=== PATIENT | female | born 1930 | race Caucasian/White ===

== ENCOUNTER 2017-06-25 15:02 | Emergency (ER) | payer MEDICARE ==
[2017-06-25 15:08] VITALS: BP 118/80; PULSE 98; RESP 18; TEMP 98.5; O2SAT 97
--- NOTE | 2017-06-25 15:21 | PD ---
HPI Chief Complaint: Fall Time Seen by Provider: 15:09 Travel History International Travel<30 days: No Contact w/Intl Traveler<30days: No Traveled to known affect area: No History of Present Illness HPI This 87-year-old female is brought for evaluation of injuries from a fall. [facility] She was awake. She had apparently fallen. The fall Was not witnessed. She is not on blood thinners. She does have a history of dementia and is not able to give history. We do not have any old charts on this lady [facility] Past Medical History Medical History: Unable to Obtain ?: Not Social History Tobacco Use: No Allergies-Medications (Allergen,Severity, Reaction): Coded Allergies: No Known Allergies (Unverified , 06/25/17) Reported Meds & Prescriptions Reported Meds & Active Scripts Active Macrobid (Nitrofurantoin Monoh/Nitrofur Macro) 100 Mg Cap 100 Mg PO BID 10 Days Reported Rivastigmine 1.5 Mg Cap 9.5 Mg PO BIDPC Proair Hfa (Albuterol Sulfate) 90 Mcg Hfa.aer.ad Potassium Chloride ER (Potassium Chloride) 20 Meq Tab 20 Meq PO BID Mapap (Acetaminophen) 500 Mg Tab 500 Mg PO BID PRN Januvia (Sitagliptin Phosphate) 100 Mg Tab 100 Mg PO DAILY Hydrochlorothiazide 12.5 Mg Cap 12.5 Mg PO DAILY Glimepiride 2 Mg Tab 2 Mg PO DAILY Take with breakfast or first main meal Furosemide 20 Mg Tab 20 Mg PO DAILY Cetirizine (Cetirizine HCl) 10 Mg Chew 10 Mg CHEW DAILY Calcium Carbonate 1,500 Mg Tab 1,500 Mg PO DAILY 1,500 mg calcium carbonate (600 mg elemental calcium) Sulfatrim 800-160 mg/20 ml Holly (Sulfamethoxazole/Trimethoprim) 800 Mg-160 Mg/20 Ml Oral.susp 1 Tab PO BID Atorvastatin (Atorvastatin Calcium) 40 Mg Tab 40 Mg PO HS Aspirin 81 Mg Chew 81 Mg CHEW DAILY Review of Systems ROS Limitations: Altered Mental Status, Poor Historian Physical Exam Narrative GENERAL: Well-developed female. She is awake. She is extremely confused. She is not oriented to place or time SKIN: Focused skin assessment warm/dry. There is erythema of both legs around the ankles HEAD: Results of. Normocephalic. EYES: Pupils equal and round. No scleral icterus. No injection or drainage. ENT: No nasal bleeding or discharge. Mucous membranes pink and moist. NECK: Trachea midline. No JVD. CARDIOVASCULAR: Regular rate and rhythm. No murmur appreciated. RESPIRATORY: No accessory muscle use. Clear to auscultation. Breath sounds equal bilaterally. GASTROINTESTINAL: Abdomen soft, non-tender, nondistended. Hepatic and splenic margins not palpable. MUSCULOSKELETAL: No obvious deformities. No clubbing. No cyanosis. No edema. I am able to flex and extend the arms and legs without much discomfort. She does complain of fairly diffuse pain with palpation of the chest pelvic area of the wrist no bruising at this site NEUROLOGICAL: Awake and alert. No obvious cranial nerve deficits. Motor grossly within normal limits. Normal speech. PSYCHIATRIC: Patient is extremely confused and not oriented Data Data Last Documented VS Vital Signs Date Time Temp Pulse Resp B/P (MAP) Pulse Ox O2 Delivery O2 Flow Rate FiO2 06/25/17 21:46 06/25/17 21:43 78 16 06/25/17 15:08 98.5 97 Orders Orders Electrocardiogram (06/25/17 15:14) Complete Blood Count With Diff (06/25/17 15:14) Basic Metabolic Panel (Bmp) (06/25/17 15:14) Chest, Single Ap (06/25/17 15:14) Pelvis, Ap Only (Routine) (06/25/17 15:14) Ct Brain W/O Iv Contrast(Rout) (06/25/17 15:14) Ct Cerv Spine W/O Contrast (06/25/17 15:14) Sodium Chlorid 0.9% 500 Ml Inj (Ns 500 M (06/25/17 17:30) Sodium Polysty Sulfate Liq (Kayexalate L (06/25/17 17:30) Urinalysis - C+S If Indicated (06/25/17 17:26) ^ Straight Catheter (06/25/17 17:26) Urine Culture (06/25/17 18:30) Ceftriaxone Inj (Rocephin Inj) (06/25/17 19:00) Sodium Chlorid 0.9% 500 Ml Inj (Ns 500 M (06/25/17 19:00) Blood Culture (06/25/17 18:54) Ed Discharge Order (06/25/17 18:58) Labs Laboratory Tests Test 06/25/17 16:20 06/25/17 18:30 White Blood Count 12.9 TH/MM3 Red Blood Count 4.71 MIL/MM3 Hemoglobin 12.8 GM/DL Hematocrit 38.9 % Mean Corpuscular Volume 82.6 FL Mean Corpuscular Hemoglobin 27.2 PG Mean Corpuscular Hemoglobin Concent 33.0 % Red Cell Distribution Width 12.6 % Platelet Count 275 TH/MM3 Mean Platelet Volume 9.0 FL Neutrophils (%) (Auto) 83.9 % Lymphocytes (%) (Auto) 7.4 % Monocytes (%) (Auto) 5.9 % Eosinophils (%) (Auto) 2.1 % Basophils (%) (Auto) 0.7 % Neutrophils # (Auto) 10.8 TH/MM3 Lymphocytes # (Auto) 1.0 TH/MM3 Monocytes # (Auto) 0.8 TH/MM3 Eosinophils # (Auto) 0.3 TH/MM3 Basophils # (Auto) 0.1 TH/MM3 CBC Comment AUTO DIFF Differential Comment AUTO DIFF CONFIRMED Blood Urea Nitrogen 25 MG/DL Creatinine 1.30 MG/DL Random Glucose 198 MG/DL Calcium Level 8.5 MG/DL Sodium Level 132 MEQ/L Potassium Level 5.4 MEQ/L Chloride Level 100 MEQ/L Carbon Dioxide Level 24.3 MEQ/L Anion Gap 8 MEQ/L Estimat Glomerular Filtration Rate 39 ML/MIN Urine Color YELLOW Urine Turbidity SLIGHT Urine pH 7.0 Urine Specific [place] 1.023 Urine Protein 30 mg/dL Urine Glucose (UA) NEG mg/dL Urine Ketones 15 mg/dL Urine Occult Blood MOD Urine Nitrite POS Urine Bilirubin NEG Urine Leukocyte Esterase NEG Urine RBC 3-5 /hpf Urine WBC 3-5 /hpf Urine Squamous Epithelial Cells 0-5 /hpf Urine Bacteria MANY /hpf Microscopic Urinalysis Comment CATH-CULTURE IND MDM Medical Decision Making Medical Screen Exam Complete: Yes Emergency Medical Condition: Yes Medical Record Reviewed: Yes Differential Diagnosis Differential includes subdural hematoma, fracture, contusions, cervical spine fracture, cellulitis of the legs Narrative Course Chest x-ray and pelvis x-ray negative. Scripts Nitrofurantoin Monohydrate Macrocrystals (Macrobid) 100 Mg Cap 100 MG PO BID for Infection for 10 Days, #20 CAP 0 Refills Prov: Sandrine Jaramillo MD 06/25/17 Kali Khan MD Jun 25, 2017 15:21
[2017-06-25] MEDS ORDERED: HYDR12.57 PO (15:39)
[2017-06-25] MEDS ORDERED: CETI10CH CHEW (15:39)
[2017-06-25] MEDS ORDERED: CALC600T4 PO (15:39)
[2017-06-25] MEDS ORDERED: POTA-163 PO (15:39)
[2017-06-25] MEDS ORDERED: MAPA500T PO (15:39)
[2017-06-25] MEDS ORDERED: RIVA1.5C PO (15:39)
[2017-06-25] MEDS ORDERED: SITA1TAB2 PO (15:39)
[2017-06-25] MEDS ORDERED: SULF20OR PO (15:39)
[2017-06-25] MEDS ORDERED: FURO20TA PO (15:39)
[2017-06-25] MEDS ORDERED: ALBUAER3 (15:39)
[2017-06-25] MEDS ORDERED: ATOR40TA16 PO (15:39)
[2017-06-25] MEDS ORDERED: ASPI-516 CHEW (15:39)
[2017-06-25] MEDS ORDERED: GLIM2TAB PO (15:39)
--- NOTE | 2017-06-25 15:57 | RADRPT ---
EXAM DATE/TIME: 06/25/2017 15:23 [facility] COMPARISON: No previous studies available for comparison. INDICATIONS : Chest discomfort; fall today. Found laying face down at [facility] per RN. MEDICAL HISTORY : Dementia. SURGICAL HISTORY : Unobtaianable. ENCOUNTER: Initial ACUITY: 1 day PAIN SCORE: 2/10 LOCATION: Bilateral chest FINDINGS: Portable AP view of the chest demonstrates a normal-sized cardiac silhouette. There is mild focal rig htward deviation of the trachea. Lungs are underinflated with atelectasis at the bases. No effusion or pneumothorax is identified. Bones and soft tissues demonstrate no acute finding. Multiple clips ov erlie the right axilla. CONCLUSION: 1. Underinflation with mild atelectasis at the lung bases. 2. Focal rightward deviation of the trachea. Although nonspecific this finding is typically secondary to an enlarged left lobe of the thyroid gland. Chuck Zavala MD on June 25, 2017 at 15:54 Board Certified Radiologist. This report was verified electronically.
--- NOTE | 2017-06-25 16:12 | RADRPT ---
EXAM DATE/TIME: 06/25/2017 15:23 [facility] COMPARISON: No previous studies available for comparison. INDICATIONS : Pelvic pain; fall today. Found laying face down at [facility] per RN. MEDICAL HISTORY : Dementia. SURGICAL HISTORY : Unobtainable. ENCOUNTER: Initial ACUITY: 1 day PAIN SCORE: 2/10 LOCATION: Bilateral pelvis FINDINGS: A single frontal view of the pelvis demonstrates no evidence of fracture. The bony pelvic ring is in tact. Bony mineralization is normal. The soft tissues are intact. CONCLUSION: No evidence of acute fracture. Jhoan Kilgore MD on June 25, 2017 at 16:10 Board Certified Radiologist. This report was verified electronically.
--- NOTE | 2017-06-25 16:32 | RADRPT ---
EXAM DATE/TIME: 06/25/2017 15:38 [facility] COMPARISON: No previous studies available for comparison. INDICATIONS : Trauma. Found on the floor at assisted living. Altered mental status. RADIATION DOSE: 43.40 CTDIvol (mGy) ; Patient motion MEDICAL HISTORY : Cardiovascular disease. Renal failure, chronic. Diabetes mellitus type 2. SURGICAL HISTORY : None. ENCOUNTER: Initial ACUITY: 1 day PAIN SCALE: Non-responsive LOCATION: cranial TECHNIQUE: Multiple contiguous axial images were obtained of the head. Using automated exposure control and adj ustment of the mA and/or kV according to patient size, radiation dose was kept as low as reasonably a chievable to obtain optimal diagnostic quality images. DICOM format image data is available electro nically for review and comparison. FINDINGS: CEREBRUM: The ventricles are enlarged. No evidence of midline shift, mass lesion, hemorrhage or acute infarcti on. No extra-axial fluid collections are seen. Increased density is identified in the periventricula r white matter. POSTERIOR FOSSA: The cerebellum and brainstem are intact. The 4th ventricle is midline. The cerebellopontine angle i s unremarkable. EXTRACRANIAL: The visualized portion of the orbits is intact. SKULL: The calvaria is intact. No evidence of skull fracture. CONCLUSION: 1. Ventriculomegaly with periventricular hypodensity characteristic of chronic microvascular ischemic disease and volume loss. 2. No evidence of acute infarct, hemorrhage, mass or edema. Jhoan Kilgore MD on June 25, 2017 at 16:23 Board Certified Radiologist. This report was verified electronically.
--- NOTE | 2017-06-25 16:42 | PD ---
Physical Exam Date Seen by Provider: Jun 25, 2017 Time Seen by Provider: 16:41 Narrative 87-year-old female came from the alf after being found on the floor face down with unknown down time. Patient is extremely confused which is apparently her baseline. She was seen by the previous ER physician. He scanned her head and neck and x-rays her chest and pelvis. The CT scan of her head and the x-ray of the chest and pelvis are back and within normal limit. CAT scan of her cervical spine is still pending. There were also blood work and UA ordered which are pending as well. If they are all within normal limit patient will be discharged back to the alf. Data Data Last Documented VS Vital Signs Date Time Temp Pulse Resp B/P (MAP) Pulse Ox O2 Delivery O2 Flow Rate FiO2 06/25/17 21:46 06/25/17 21:43 78 16 06/25/17 15:08 98.5 97 Orders Orders Electrocardiogram (06/25/17 15:14) Complete Blood Count With Diff (06/25/17 15:14) Basic Metabolic Panel (Bmp) (06/25/17 15:14) Chest, Single Ap (06/25/17 15:14) Pelvis, Ap Only (Routine) (06/25/17 15:14) Ct Brain W/O Iv Contrast(Rout) (06/25/17 15:14) Ct Cerv Spine W/O Contrast (06/25/17 15:14) Sodium Chlorid 0.9% 500 Ml Inj (Ns 500 M (06/25/17 17:30) Sodium Polysty Sulfate Liq (Kayexalate L (06/25/17 17:30) Urinalysis - C+S If Indicated (06/25/17 17:26) ^ Straight Catheter (06/25/17 17:26) Urine Culture (06/25/17 18:30) Ceftriaxone Inj (Rocephin Inj) (06/25/17 19:00) Sodium Chlorid 0.9% 500 Ml Inj (Ns 500 M (06/25/17 19:00) Blood Culture (06/25/17 18:54) Ed Discharge Order (06/25/17 18:58) Labs Laboratory Tests Test 06/25/17 16:20 06/25/17 18:30 White Blood Count 12.9 TH/MM3 Red Blood Count 4.71 MIL/MM3 Hemoglobin 12.8 GM/DL Hematocrit 38.9 % Mean Corpuscular Volume 82.6 FL Mean Corpuscular Hemoglobin 27.2 PG Mean Corpuscular Hemoglobin Concent 33.0 % Red Cell Distribution Width 12.6 % Platelet Count 275 TH/MM3 Mean Platelet Volume 9.0 FL Neutrophils (%) (Auto) 83.9 % Lymphocytes (%) (Auto) 7.4 % Monocytes (%) (Auto) 5.9 % Eosinophils (%) (Auto) 2.1 % Basophils (%) (Auto) 0.7 % Neutrophils # (Auto) 10.8 TH/MM3 Lymphocytes # (Auto) 1.0 TH/MM3 Monocytes # (Auto) 0.8 TH/MM3 Eosinophils # (Auto) 0.3 TH/MM3 Basophils # (Auto) 0.1 TH/MM3 CBC Comment AUTO DIFF Differential Comment AUTO DIFF CONFIRMED Blood Urea Nitrogen 25 MG/DL Creatinine 1.30 MG/DL Random Glucose 198 MG/DL Calcium Level 8.5 MG/DL Sodium Level 132 MEQ/L Potassium Level 5.4 MEQ/L Chloride Level 100 MEQ/L Carbon Dioxide Level 24.3 MEQ/L Anion Gap 8 MEQ/L Estimat Glomerular Filtration Rate 39 ML/MIN Urine Color YELLOW Urine Turbidity SLIGHT Urine pH 7.0 Urine Specific [place] 1.023 Urine Protein 30 mg/dL Urine Glucose (UA) NEG mg/dL Urine Ketones 15 mg/dL Urine Occult Blood MOD Urine Nitrite POS Urine Bilirubin NEG Urine Leukocyte Esterase NEG Urine RBC 3-5 /hpf Urine WBC 3-5 /hpf Urine Squamous Epithelial Cells 0-5 /hpf Urine Bacteria MANY /hpf Microscopic Urinalysis Comment CATH-CULTURE IND MDM Supervised Visit with YANET: No Interpretation(s) Twelve-lead EKG was reviewed by me. Normal sinus rhythm, normal axis, nonspecific ST-T wave changes. Heart rate of 98 bpm. Narrative Course 6:56 PM patient has a significant UTI. I've ordered IV Rocephin and another 500 cc of fluid bolus. After that I'm comfortable discharging her back to the alf. She will go home with a prescription antibiotic. Diagnosis Primary Impression: Fall Qualified Codes: W19.XXXA - Unspecified fall, initial encounter Additional Impressions: UTI (urinary tract infection) Qualified Codes: N39.0 - Urinary tract infection, site not specified Dehydration Dementia Qualified Codes: F03.91 - Unspecified dementia with behavioral disturbance Referrals: Primary Care Physician 2 days Additional Instruction: Please return to the ER if symptoms worsen or any other new concerns. Lites follow-up with primary care. Take the medication as per the prescription direction. Hold oral potassium supplementation for next 2 days. Med/Other Pt SpecificInfo: Prescription(s) given, Med Stopped (potassium for next 2 days) Scripts Nitrofurantoin Monohydrate Macrocrystals (Macrobid) 100 Mg Cap 100 MG PO BID for Infection for 10 Days, #20 CAP 0 Refills Prov: Sandrine Jaramillo MD 06/25/17 Disposition: 01 DISCHARGE HOME Condition: Stable Sandrine Jaramillo MD Jun 25, 2017 16:42
[2017-06-25 16:53] LABS: AUTOMATED NEUTROPHIL # 10.8 TH/MM3 (1.8-7.7); BASOPHIL # 0.1 TH/MM3 (0-0.2); BASOPHIL % 0.7 % (0.0-2.0); EOSINOPHIL # 0.3 TH/MM3 (0-0.4); EOSINOPHIL % 2.1 % (0.0-4.0); HEMATOCRIT 38.9 % (35.0-46.0); LYMPH % 7.4 % (9.0-44.0); MEAN CELL VOLUME 82.6 FL (80.0-100.0); MEAN CORPUSCULAR HEMOGLOBIN 27.2 PG (27.0-34.0); MONO % 5.9 % (0.0-8.0); NEUT % 83.9 % (16.0-70.0); PLATELET COUNT 275 TH/MM3 (150-450); RED BLOOD COUNT 4.71 MIL/MM3 (4.00-5.30); RED CELL DISTRIBUTION WIDTH 12.6 % (11.6-17.2); WHITE BLOOD COUNT 12.9 TH/MM3 (4.0-11.0)
[2017-06-25 17:02] LABS: BICARBONATE 24.3 MEQ/L (21.0-32.0)
--- NOTE | 2017-06-25 17:07 | RADRPT ---
EXAM DATE/TIME: 06/25/2017 15:38 [facility] COMPARISON: No previous studies available for comparison. INDICATIONS : Trauma. Found on the floor at assisted living. Altered mental status. RADIATION DOSE: 25.01 CTDIvol (mGy) MEDICAL HISTORY : Diabetes mellitus type 2. Renal failure, chronic. Cardiovascular disease SURGICAL HISTORY : None. ENCOUNTER: Initial ACUITY: 1 day PAIN SCALE: Non-responsive LOCATION: cranial TECHNIQUE: Volumetric scanning of the cervical spine was performed. Multiplanar reconstructions in the sagittal, coronal and oblique axial planes were performed. Using automated exposure control and adjustment o f the mA and/or kV according to patient size, radiation dose was kept as low as reasonably achievable to obtain optimal diagnostic quality images. DICOM format image data is available electronically f or review and comparison. FINDINGS: Alignment: Reversal of normal lordosis is noted throughout the mid cervical segments. There is slight anterolist hesis of C2 on C3 and C7 on T1. AP alignment is otherwise well preserved. Osseous structures and facet joints: Vertebral bodies and posterior elements are intact without evidence of fracture. Significant facet arthropathy is identified on the left at C2-3 and C7-T1 accounting for the anteroli sthesis stated above. Intervertebral disc spaces: Advanced degenerative disease with disc space narrowing, endplate sclerosis and marginal spondylosis is noted at C3-4, C4-5, C5-6 and C6-7. There are no findings to suggest acute disc herniation. Neurologic structures: No evidence of significant spinal stenosis. Mild left-sided neural foraminal narrowing is identified at C6-7. CONCLUSION: 1. Mild degenerative anterolisthesis at C2-3 and C7-T1 secondary to facet arthropathy. 2. No evidence of acute fracture or traumatic listhesis. 3. Advanced degenerative disc disease without evidence of disc herniation. 4. 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 Jhoan Kilgore MD on June 25, 2017 at 16:57 Board Certified Radiologist. This report was verified electronically.
[2017-06-25 17:20] LABS: HEMO FLAGS AUTO DIFF
[2017-06-25 17:24] LABS: POTASSIUM 5.4 MEQ/L (3.5-5.1)
[2017-06-25] MEDS ORDERED: SODIUM CHLORID 0.9% 500 ML INJ 500 ML IV ONE ×2 (17:30→19:00)
[2017-06-25] MEDS ORDERED: SODIUM POLYSTYRENE SULFONATE SUSP 15 GM/60 ML CUP PO ONE (17:30)
[2017-06-25 17:50] LABS: SCAN/DIFF AUTO DIFF CONFIRMED
[2017-06-25 18:39] LABS: BLOOD, URINE MOD (NEG); GLUCOSE,URINE NEG (NEG); KETONE, URINE 15 mg/dL (NEG); NITRITE,URINE POS (NEG)
[2017-06-25 18:47] LABS: SQUAMOUS EPITHELIAL CELL URINE 0-5 /hpf (0-5); URINE COLOR YELLOW (YELLW/STRAW)
[2017-06-25 18:48] LABS: BACTERIA, URINE MANY /hpf; COMMENT (UR) CATH-CULTURE IND; CULTURE IF INDICATED CATH CULTURE IND
[2017-06-25] MEDS ORDERED: MACR100C2 PO (18:58)
[2017-06-25] MEDS ORDERED: cefTRIAXone INJ 1,000 MG in SODIUM CHLORIDE 0.9% INJ 100 ML IV ONE (19:00)
[2017-06-25 21:43] VITALS: BP 142/78; PULSE 78; RESP 16
--- NOTE | 2017-06-26 18:19 | EKG ---
Date Performed: 06/25/2017 Time Performed: 15:59:53 PTAGE: 87 years EKG: Sinus rhythm MINIMAL ST DEPRESSION BORDERLINE ECG NO PREVIOUS TRACING DOCTOR: Ranjeet Rivera Interpretating Date/Time 06/26/2017 18:15:08
== END 2017-06-25 21:48 | disposition home or self-care (01) ==
LOC: PHEFT 15:02 → PHED 21:48
DX: N39.0 Urinary tract infection, site not specified (principal); E86.0 Dehydration; F03.91 Unspecified dementia, unspecified severity, with behavioral disturbance; W19.XXXA Unspecified fall, initial encounter; Y92.129 Unspecified place in nursing home as the place of occurrence of the external cause; B96.20 Unspecified Escherichia coli [E. coli] as the cause of diseases classified elsewhere
CPT/HCPCS: 70450; 71010; 72125; 72170; 80048; 81001; 85025; 87040; 87077; 87086; 87186; 93005; 96361; 96365; 99285; J0696; J7040

== ENCOUNTER 2018-05-29 08:53 | Inpatient (IN) ==
[2018-05-29] MEDS ORDERED: Acetaminophen 650 MG Supp RECTAL ONE (08:56)
--- NOTE | 2018-05-29 09:01 | ED ---
HPI General Chief Complaint: Fever Stated Complaint: evac/ Time Seen by Provider: 05/29/18 08:55 Source: EMS Mode of arrival: EMS Limitations: altered mental status History of Present Illness HPI narrative: Patient is an 88-year-old female with history of dementia, diabetes, ckd, hyperlipidemia, asthma; presents the emergency room for evaluation of altered mental status, fall as well as fever. As per EMS, they were initially called on scene as patient had a witnessed fall while in the bathroom. It was unclear if patient had any trauma to her head or if she suffered LOC. When they arrived on scene, patient did feel warm and patient was noted to have a fever. Patient is pleasantly demented, and is unable to provide an HPI at this time. Related Data Home Medications Medication Instructions Recorded Confirmed acetaminophen [Mapap 500 mg PO BID 05/29/18 05/29/18 (acetaminophen)] albuterol sulfate [ProAir HFA] 2 puff INHALATION BID 05/29/18 05/29/18 aspirin [Aspirin Low Dose] 81 mg PO DAILY 05/29/18 05/29/18 atorvastatin 40 mg PO HS 05/29/18 05/29/18 calcium carbonate-vitamin D3 1 tab PO DAILY 05/29/18 05/29/18 [Calcium 600 + D(3)] cetirizine 10 mg PO DAILY 05/29/18 05/29/18 furosemide 20 mg PO DAILY 05/29/18 05/29/18 glimepiride 2 mg PO QAM 05/29/18 05/29/18 hydrochlorothiazide 12.5 mg PO DAILY 05/29/18 05/29/18 potassium chloride 20 meq PO BID 05/29/18 05/29/18 quetiapine 25 mg PO HS 05/29/18 05/29/18 rivastigmine 9.5 mg TRANSDERMAL DAILY 05/29/18 05/29/18 sitagliptin [Januvia] 100 mg PO DAILY 05/29/18 05/29/18 Allergies Allergy/AdvReac Type Severity Reaction Status Date / Time No Known Allergies Allergy Unverified 06/25/17 15:19 Review of Systems ROS: all other systems reviewed are negative FOR[facility]LY [facility] Medical History Medical History Asthma (Acute) CKD (chronic kidney disease) (Acute) Dementia (Acute) Diabetes (Acute) Hyperlipidemia (Acute) Hypertension (Acute) Social History Social History Substance History: Unable to Obtain Smoking Status: Cognitive impairment How Often Do You Have a Drink Containing Alcohol: Never Exam Narrative Exam Narrative: GENERAL: Mild distress SKIN: Focused skin assessment warm/dry. HEAD: Atraumatic. Normocephalic. EYES: Pupils equal and round. No scleral icterus. No injection or drainage. ENT: No nasal bleeding or discharge. Mucous membranes pink and moist. NECK: Trachea midline. No JVD. CARDIOVASCULAR: Regular rate and rhythm. No murmur appreciated. RESPIRATORY: No accessory muscle use. Clear to auscultation. Breath sounds equal bilaterally. GASTROINTESTINAL: Abdomen soft, non-tender, nondistended. Hepatic and splenic margins not palpable. MUSCULOSKELETAL: No obvious deformities. No clubbing. No cyanosis. No edema. NEUROLOGICAL: Awake and alert. No obvious cranial nerve deficits. Motor grossly within normal limits. Normal speech. PSYCHIATRIC: Pleasantly demented Course Initial Documented Vital Signs Pulse Oximetry 95 05/29/18 08:56 Last Documented Vital Signs Temperature 100.8 F H 05/29/18 09:00 Pulse Rate 92 H 05/29/18 10:06 Respiratory Rate 20 05/29/18 10:06 Blood Pressure 101/58 L 05/29/18 10:06 Pulse Oximetry 95 05/29/18 10:06 Medical Decision Making [facility] Narrative Medical decision making narrative: During the course of the patients emergency department visit, the patients history, examination, and differential diagnosis were reviewed with the patient. The patient was placed on a administrative support specialist with oximetry and frequent blood pressure monitoring. The patient had an IV access obtained and blood work sent for analysis. The patient was initially provided rectal acetaminophen Sepsis workup was inititated The patients laboratory studies were reviewed and remarkable for wbc 13.5, hgb 12.4, hct 27.3, platelets 253 Sodium was 139, potassium 3.1 which was repleted, BUN 23, creatinine 1.30, glucose 201 Lactic acid was 2.9 Magnesium 1.4 which was repleted with 2 g of magnesium Radiology studies were reviewed and were unremarkable for an acute process Plan to admit for treatment of sepsis most likely from UTI case reviewed with Dr. Xiao who accepts pt to service Medical Screen Exam Complete: Yes Emergency Medical Condition: Yes Differential Diagnosis Differential Diagnosis: uti, ich, concussion, electrolyte abnormality, acs Medical Records Medical records reviewed: Yes I reviewed the patient's medical records. Lab Data Lab results reviewed: Yes I reviewed the patient's lab results. Result diagrams: 05/29/18 09:00 05/29/18 09:00 Lab Results 05/29/18 05/29/18 05/29/18 Range/Units 09:00 09:00 09:00 CBC w Diff Auto diff final WBC 13.5 H (4.0-11.0) th/mm3 RBC 4.43 (4.00-5.30) mil/mm3 Hgb 12.4 (11.6-15.3) gm/dL Hct 37.3 (35.0-46.0) % MCV 84.2 (80.0-100.0) fL MCH 28.0 (27.0-34.0) pg MCHC 33.2 (32.0-36.0) % RDW 12.8 (11.6-17.2) % Plt Count 253 (150-450) th/mm3 MPV 9.5 (7.0-11.0) fL Neut % (Auto) 94.2 H (16.0-70.0) % Lymph % (Auto) 1.9 L (9.0-44.0) % [place] % (Auto) 2.4 (0.0-8.0) % Eos % (Auto) 0.1 (0.0-4.0) % Baso % (Auto) 1.4 (0.0-2.0) % Neut # (Auto) 12.7 H (1.8-7.7) th/mm3 Lymph # (Auto) 0.3 L (1.0-4.8) th/mm3 [place] # (Auto) 0.3 (0.0-0.9) th/mm3 Eos # (Auto) 0.0 (0.0-0.4) th/mm3 Baso # (Auto) 0.2 (0.0-0.2) th/mm3 WBC Differential . Differential Comment . Sodium 139 (136-145) meq/L Potassium 3.1 L (3.5-5.1) meq/L Chloride 101 (98-107) meq/L Carbon Dioxide 25.4 (21.0-32.0) meq/L Anion Gap 13 (5-15) meq/L BUN 23 H (7-18) mg/dL Creatinine 1.30 H (0.50-1.00) mg/dL Estimated GFR 39 L (>89) mL/min Random Glucose 201 H (74-106) mg/dL Lactic Acid 2.9 H (0.4-2.0) mmol/L Calcium 8.2 L (8.5-10.1) mg/dL Magnesium 1.4 L (1.5-2.5) mg/dL Total Bilirubin 0.8 (0.2-1.0) mg/dL AST 24 (15-37) U/L ALT 25 (10-53) U/L Alkaline Phosphatase 115 (45-117) U/L Total Creatine Kinase 43 (26-192) U/L Troponin I Less than 0.02 L (0.02-0.05) ng/mL Total Protein 7.1 (6.4-8.2) g/dL Albumin 2.9 L (3.4-5.0) g/dL Urine Color (Yellw/Straw) Urine Clarity (Clear) Urine pH (5.0-8.5) Ur Specific [place] (1.002-1.035) Urine Protein (Neg-Trace) mg/dL Urine Glucose (UA) (Negative) mg/dL Urine Ketones (Negative) mg/dL Urine Occult Blood (Negative) Urine Nitrate (Negative) Urine Bilirubin (Negative) Urine Urobilinogen (Less than 2) mg/dL Ur Leukocyte Esterase (Negative) Urine WBC (0-5) /hpf Urine WBC Clumps (None) Urine Bacteria (None) /hpf Micro UA Comment Ur Microscopic Review Urine Culture Comments 05/29/18 Range/Units 09:25 CBC w Diff WBC (4.0-11.0) th/mm3 RBC (4.00-5.30) mil/mm3 Hgb (11.6-15.3) gm/dL Hct (35.0-46.0) % MCV (80.0-100.0) fL MCH (27.0-34.0) pg MCHC (32.0-36.0) % RDW (11.6-17.2) % Plt Count (150-450) th/mm3 MPV (7.0-11.0) fL Neut % (Auto) (16.0-70.0) % Lymph % (Auto) (9.0-44.0) % [place] % (Auto) (0.0-8.0) % Eos % (Auto) (0.0-4.0) % Baso % (Auto) (0.0-2.0) % Neut # (Auto) (1.8-7.7) th/mm3 Lymph # (Auto) (1.0-4.8) th/mm3 [place] # (Auto) (0.0-0.9) th/mm3 Eos # (Auto) (0.0-0.4) th/mm3 Baso # (Auto) (0.0-0.2) th/mm3 WBC Differential Differential Comment Sodium (136-145) meq/L Potassium (3.5-5.1) meq/L Chloride (98-107) meq/L Carbon Dioxide (21.0-32.0) meq/L Anion Gap (5-15) meq/L BUN (7-18) mg/dL Creatinine (0.50-1.00) mg/dL Estimated GFR (>89) mL/min Random Glucose (74-106) mg/dL Lactic Acid (0.4-2.0) mmol/L Calcium (8.5-10.1) mg/dL Magnesium (1.5-2.5) mg/dL Total Bilirubin (0.2-1.0) mg/dL AST (15-37) U/L ALT (10-53) U/L Alkaline Phosphatase (45-117) U/L Total Creatine Kinase (26-192) U/L Troponin I (0.02-0.05) ng/mL Total Protein (6.4-8.2) g/dL Albumin (3.4-5.0) g/dL Urine Color Yellow (Yellw/Straw) Urine Clarity Cloudy H (Clear) Urine pH 6.0 (5.0-8.5) Ur Specific [place] 1.015 (1.002-1.035) Urine Protein Trace (Neg-Trace) mg/dL Urine Glucose (UA) Negative (Negative) mg/dL Urine Ketones Trace H (Negative) mg/dL Urine Occult Blood Trace (Negative) Urine Nitrate Positive H (Negative) Urine Bilirubin Negative (Negative) Urine Urobilinogen 0.2 (Less than 2) mg/dL Ur Leukocyte Esterase Large H (Negative) Urine WBC 21-50 H (0-5) /hpf Urine WBC Clumps Moderate H (None) Urine Bacteria Many H (None) /hpf Micro UA Comment Culture indicated Ur Microscopic Review Microscopic reviewed Urine Culture Comments Culture indicated Imaging Data Attestation: I personally reviewed and interpreted this imaging study as follows : Radiologist's impression: Chest X-Ray 05/29/18 08:56 CONCLUSION: Negative examination. Head CT 05/29/18 08:56 CONCLUSION: 1. Negative CT Head non contrast. . Cervical Spine CT 05/29/18 09:02 CONCLUSION: 1. Stable degenerative changes. No evidence of fracture. ECG Data EKG Prior to Arrival: No Attestation: I personally reviewed and interpreted this ECG as follows: Interpretation: EKG at 0923: NSR at 95bpm, qt/qtc: 364/416, nonspecific t wave changes Discharge Plan Discharge Disposition Patient Disposition: 30 Still Patient Discharge Condition Condition: Fair Discharge Details Diagnosis: Sepsis, Acute UTI, Acute hypokalemia, Hypomagnesemia Physicians Team ED Provider: Hannah Travis Primary Care Provider: [place]ita Park Rxs /Orders / Referrals /Forms Prescriptions: No Action quetiapine 25 mg Tablet 25 mg PO HS RF: 0 atorvastatin 40 mg Tablet 40 mg PO HS RF: 0 cetirizine 10 mg Tablet 10 mg PO DAILY RF: 0 glimepiride 2 mg Tablet 2 mg PO QAM RF: 0 albuterol sulfate [ProAir HFA] 90 mcg/actuation Hfa Aerosol Inhaler 2 puff INHALATION BID RF: 0 acetaminophen [Mapap (acetaminophen)] 500 mg Capsule 500 mg PO BID RF: 0 sitagliptin [Januvia] 100 mg Tablet 100 mg PO DAILY RF: 0 rivastigmine 9.5 mg/24 hr Patch 24 Hour 9.5 mg TRANSDERMAL DAILY RF: 0 potassium chloride 20 mEq Tablet Extended Release 20 meq PO BID RF: 0 aspirin [Aspirin Low Dose] 81 mg Tablet,Delayed Release (Dr/Ec) 81 mg PO DAILY RF: 0 hydrochlorothiazide 12.5 mg Capsule 12.5 mg PO DAILY RF: 0 furosemide 20 mg Tablet 20 mg PO DAILY RF: 0 calcium carbonate-vitamin D3 [Calcium 600 + D(3)] 600 mg(1,500mg) -400 unit Tablet 1 tab PO DAILY RF: 0 Status ED Status: With Doctor
--- NOTE | 2018-05-29 09:17 | XR ---
EXAM DATE: 05/29/2018 8:56 AM EDT AGE/SEX: 88 years / Female INDICATIONS: Fever CLINICAL DATA: This is the patient's initial encounter. Patient reports that signs and symptoms have been present for 1 day and indicates a pain score of Nonresponsive. MEDICAL/SURGICAL HISTORY: . Diabetes mellitus type 2. Renal failure, chronic. Cardiovascular di sease Non-responsive. COMPARISON: [facility], CHEST SINGLE AP, 06/25/2017. . FINDINGS: Single view of the chest demonstrates stable mild hypoinflation of the lungs. The lungs are clear. He art size is normal. The urinary vasculature is normal in caliber. Mild tortuosity of the thoracic aor ta. Osseous structures are intact. CONCLUSION: Negative examination. Electronically signed by: Amberly Melendrez MD 05/29/2018 9:16 AM EDT
[2018-05-29 09:44] LABS: Bilirubin,Urine Negative (Negative); Clarity,Urine Cloudy (Clear); Color,Urine Yellow (Yellw/Straw); Glucose,Urine (UA) Negative (Negative); Leukocyte Esterase,Urine Large (Negative); Nitrite,Urine Positive (Negative); Specific Gravity,Urine 1.015 (1.002-1.035); Urobilinogen,Urine 0.2 mg/dL (Less than 2)
[2018-05-29 09:50] LABS: Baso # (Auto) 0.2 th/mm3 (0.0-0.2); Baso % (Auto) 1.4 % (0.0-2.0); Eos % (Auto) 0.1 % (0.0-4.0); Hematocrit 37.3 % (35.0-46.0); Hemoglobin 12.4 gm/dL (11.6-15.3); Lymph # (Auto) 0.3 th/mm3 (1.0-4.8); Lymph % (Auto) 1.9 % (9.0-44.0); Mean Corpuscular HGB Conc 33.2 % (32.0-36.0); Mean Corpuscular Volume 84.2 fL (80.0-100.0); Mean Platelet Volume 9.5 fL (7.0-11.0); Mono # (Auto) 0.3 th/mm3 (0.0-0.9); Mono % (Auto) 2.4 % (0.0-8.0); Neut # (Auto) 12.7 th/mm3 (1.8-7.7); Neut % (Auto) 94.2 % (16.0-70.0); Platelet Count 253 th/mm3 (150-450); Red Blood Count 4.43 mil/mm3 (4.00-5.30); Red Cell Distribution Width 12.8 % (11.6-17.2); White Blood Count 13.5 th/mm3 (4.0-11.0)
[2018-05-29 09:50] LABS: Bacteria,Urine Many /hpf; WBC,Urine 21-50 /hpf (0-5)
[2018-05-29 09:53] LABS: Calcium 8.2 mg/dL (8.5-10.1)
[2018-05-29 09:54] LABS: Albumin 2.9 g/dL (3.4-5.0); Carbon Dioxide 25.4 meq/L (21.0-32.0); Glucose,Random 201 mg/dL (74-106); Magnesium 1.4 mg/dL (1.5-2.5)
[2018-05-29 09:55] LABS: Alanine Aminotransferase 25 U/L (10-53); Anion Gap 13 meq/L (5-15); Chloride 101 meq/L (98-107); Potassium 3.1 meq/L (3.5-5.1); Sodium 139 meq/L (136-145)
[2018-05-29] MEDS ORDERED: Magnesium Sulfate Inj 2 GM in Sodium Chlor 0.9% Inj 96 ML IV.SIG ONE (09:55)
[2018-05-29 09:57] LABS: Glomerular Filtration Rate 39 mL/min (>89)
[2018-05-29 09:58] LABS: Aspartate Aminotransferase 24 U/L (15-37); Blood Urea Nitrogen 23 mg/dL (7-18); Total Protein 7.1 g/dL (6.4-8.2)
[2018-05-29 10:01] LABS: Alkaline Phosphatase 115 U/L (45-117)
--- NOTE | 2018-05-29 10:04 | CT ---
EXAM DATE: 05/29/2018 9:00 AM EDT AGE/SEX: 88 years / Female INDICATIONS: Altered Mental Status, Fall CLINICAL DATA: This is the patient's initial encounter. Patient reports that signs and symptoms have been present for 1 day and indicates a pain score of 0/10. MEDICAL/SURGICAL HISTORY: Diabetes. Hypertension. Dementia. Asthma, kidney disease None. RADIATION DOSE: 57.23 CTDI (mGy) COMPARISON: [facility], CT BRAIN W/O CONTRAST, 06/25/2017. . TECHNIQUE: CT of the head without contrast. Using automated exposure control and adjustment of the mA and/or kV according to patient size, radiation dose was kept as low as reasonably achievable to ob tain optimal diagnostic quality images. DICOM format image data is available electronically for revi ew and comparison. FINDINGS: Cerebrum: The ventricles are normal for age. No evidence of midline shift, mass lesion, hemorrhage or acute infarction. No extraaxial fluid collections are seen. Posterior Fossa: The cerebellum and brainstem are intact. The 4th ventricle is midline. The cerebe llopontine angle is unremarkable. Extracranial: The visualized portion of the orbits is intact. Skull: The calvaria is intact. No evidence of skull fracture. CONCLUSION: 1. Negative CT Head non contrast. . Electronically signed by: Amberly Melendrez MD 05/29/2018 10:03 AM EDT
--- NOTE | 2018-05-29 10:10 | CT ---
EXAM DATE: 05/29/2018 9:03 AM EDT AGE/SEX: 88 years / Female INDICATIONS: Fall today CLINICAL DATA: This is the patient's initial encounter. Patient reports that signs and symptoms have been present for 1 day and indicates a pain score of 0/10. MEDICAL/SURGICAL HISTORY: Diabetes. Dementia. Hypertension. Asthma, Kidney Disease None. RADIATION DOSE: 25.34 CTDI (mGy) COMPARISON: [facility], CT CERVICAL SPINE W/O CONTRAST, 06/25/2017. . TECHNIQUE: Contiguous axial images were obtained using helical multirow detector technique. The vol umetric data was post-processed with multiplanar reconstruction in oblique axial, sagittal, and coron al planes. Using automated exposure control and adjustment of the mA and/or kV according to patient s ize, radiation dose was kept as low as reasonably achievable to obtain optimal diagnostic quality alejandra ges. DICOM format image data is available electronically for review and comparison. FINDINGS: Vertebrae: Normal vertebral body height. No evidence of fracture. Alignment: There is loss of the normal cervical lordosis with slight kyphosis of the cervical spine from C3 through C6 secondary to degenerative disc changes. Stable degenerative disc changes seen from C3 through the superior endplate of C7. No significant tamiko rowing of the spinal canal. Multiple levels of uncovertebral joint hypertrophy from C4 through C7 and multiple levels of mild to moderate facet degenerative change. CONCLUSION: 1. Stable degenerative changes. No evidence of fracture. Electronically signed by: Amberly Melendrez MD 05/29/2018 10:09 AM EDT
[2018-05-29] MEDS: Sod Chloride 0.9% Inj 1,000 ML IV.SIG SCH (10:12)
[2018-05-29 10:22] LABS: Creatine Kinase 43 U/L (26-192)
[2018-05-29] MEDS ORDERED: Sod Chloride 0.9% Inj 1,000 ML IV.SIG SCH (10:45)
[2018-05-29] MEDS ORDERED: Acetaminophen 325 MG Tablet PO PRN (15:06)
[2018-05-29] MEDS ORDERED: Dextrose 50% in Water 50 ML Vial IV.PUSH PRN (15:07)
--- NOTE | 2018-05-29 15:22 | P.HP ---
History of Present Illness Primary Care Physician: Floresita Park Chief Complaint: Altered mental status change History of Present Illness: 88-year-old female for past medical history of dementia who is unable to provide any history at this time during my exam and history is obtained from ED report and chart review below: "Patient is an 88-year-old female with history of dementia, diabetes, ckd, hyperlipidemia, asthma; presents the emergency room for evaluation of altered mental status, fall as well as fever. As per EMS, they were initially called on scene as patient had a witnessed fall while in the bathroom. It was unclear if patient had any trauma to her head or if she suffered LOC. When they arrived on scene, patient did feel warm and patient was noted to have a fever. Patient is pleasantly demented, and is unable to provide an HPI at this time. " Patient was found to have elevated WBC, lactic acid and abnormal UA for which she was treated with Rocephin IV x1 in the ED. - Diagnosis (1) Sepsis (2) Acute UTI (3) Acute metabolic encephalopathy Inpatient Certification: I certify that the inpatient services were ordered in accordance with Medicare regulations governing the order. This includes certification that hospital inpatient services are reasonable and necessary and in the case of services not specified as inpatient-only under 42 CFR 419.22(n), that they are appropriately provided as inpatient services in accordance to with the 2-midnight benchmark under 43 CFR 412.3(e) Estimated Total Length of Stay (Days): 2 Plans for Post Hospital Care: SNF Review of Systems other (dementia) PMFSH - History History Provided By: Medical Record - Medical History Medical History: Medical History (Last Reviewed 05/29/18 @ 10:50 by Neida Jenkins RN) Asthma CKD (chronic kidney disease) Dementia Diabetes Hyperlipidemia Hypertension - Family History Family History: Family History (Last Updated 05/29/18 @ 15:16 by Antonio Xiao MD) Other Unable to communicate - Tobacco History Smoking Status: Cognitive impairment - Alcohol History How Often Do You Have a Drink Containing Alcohol: Never - Substance Use History Substance History: Unable to Obtain - Immunization History Tetanus Immunization: Unable to Assess Medications and Allergies Active Medications: Active Medications Acetaminophen (Tylenol) 650 mg PO Q4H PRN PRN Reason: Temp > 100.4 Al Hydroxide/Mg Hydroxide (Milk Of Magnesia Liq) 30 ml PO Q12H PRN PRN Reason: Mild Constipation Dextrose (D50w Vial) 50 ml IV.PUSH UNSCH PRN PRN Reason: PER HYPOGLYCEMIA PROTOCOL Glucagon (Glucagon Inj) 1 mg OTHER PRN PRN PRN Reason: for Hypoglycemia Protocol Sodium Chloride (Ns Inj) 1,000 mls @ 0 mls/hr IV.SIG BOLUS [facility] Last Infusion: 05/29/18 11:47 Dose: Infused Sodium Chloride (Ns Inj) 1,000 mls @ 0 mls/hr IV.SIG BOLUS [facility] Last Infusion: 05/29/18 13:27 Dose: Infused Ceftriaxone Sodium 1,000 mg/ (Sodium Chloride) 100 mls @ 200 mls/hr IV.SIG Q24H [facility] Insulin Aspart (Novolog Insulin Correctional Sugar Inj) 0 unit SQ ACHS M[facility]Y; Protocol Ondansetron HCl (Zofran Inj) 4 mg IV.PUSH Q6H PRN PRN Reason: NAUSEA OR VOMITING Allergies Allergy/AdvReac Type Severity Reaction Status Date / Time No Known Allergies Allergy Unverified 05/29/18 12:25 Home Medications Medication Instructions Recorded Confirmed Type acetaminophen [Mapap 500 mg PO BID 05/29/18 05/29/18 History (acetaminophen)] albuterol sulfate [ProAir HFA] 2 puff INHALATION BID 05/29/18 05/29/18 History aspirin [Aspirin Low Dose] 81 mg PO DAILY 05/29/18 05/29/18 History atorvastatin 40 mg PO HS 05/29/18 05/29/18 History calcium carbonate-vitamin D3 1 tab PO DAILY 05/29/18 05/29/18 History [Calcium 600 + D(3)] cetirizine 10 mg PO DAILY 05/29/18 05/29/18 History furosemide 20 mg PO DAILY 05/29/18 05/29/18 History glimepiride 2 mg PO QAM 05/29/18 05/29/18 History hydrochlorothiazide 12.5 mg PO DAILY 05/29/18 05/29/18 History potassium chloride 20 meq PO BID 05/29/18 05/29/18 History quetiapine 25 mg PO HS 05/29/18 05/29/18 History rivastigmine 9.5 mg TRANSDERMAL DAILY 05/29/18 05/29/18 History sitagliptin [Januvia] 100 mg PO DAILY 05/29/18 05/29/18 History Exam Vital signs: Vital Signs 05/29/18 08:56 05/29/18 09:00 05/29/18 10:06 Temperature 100.8 F H Pulse Rate 94 H 92 H Respiratory Rate 22 20 Blood Pressure 97/46 L 101/58 L Pulse Oximetry 95 93 L 95 05/29/18 11:35 05/29/18 12:10 05/29/18 12:25 Temperature 99.8 F H Pulse Rate 87 88 Respiratory Rate 18 20 Blood Pressure 103/82 95/57 L Pulse Oximetry 96 05/29/18 13:06 Temperature Pulse Rate 85 Respiratory Rate 18 Blood Pressure 103/54 L Pulse Oximetry 96 Intake & Output 05/28/18 05/29/18 05/29/18 18:59 06:59 18:59 Intake Total 2199 / 2199 Balance 220 / 2199 Weight 72 kg Intake: IV 2199 / 2199 Magnesium Sulfate Inj 2 GM In 100 / 100 NS Inj 96 ML @ 50 mls/hr IV.SIG ONCE ONE Rx#:[id number] NS Inj 1,000 ML @ Wide Open IV. 1999 SIG BOLUS [facility] Rx#:[id number] Rocephin Inj 1,000 MG In NS Inj 100 / 100 100 ML @ 200 mls/hr IV.SIG ONCE ONE Rx#:[id number] Narrative: GENERAL: NAD but unable to articulate SKIN: Warm and dry. HEAD: Atraumatic. Normocephalic. EYES: Pupils equal and round. No scleral icterus. No injection or drainage. ENT: No nasal bleeding or discharge. Mucous membranes pink and moist. NECK: Trachea midline. No JVD. CARDIOVASCULAR: Regular rate and rhythm. RESPIRATORY: No accessory muscle use. Clear to auscultation. Breath sounds equal bilaterally. GASTROINTESTINAL: Abdomen soft, non-tender, nondistended. Hepatic and splenic margins not palpable. MUSCULOSKELETAL: Extremities without clubbing, cyanosis, or edema. No obvious deformities. NEUROLOGICAL: Awake and alert. No obvious cranial nerve deficits. Motor grossly within normal limits. Five out of 5 muscle strength in the arms and legs. Results - Labs CBC & Chem 7: 05/29/18 09:00 05/29/18 09:00 Labs: Laboratory Results - last 24 hr 05/29/18 05/29/18 05/29/18 09:00 09:00 09:00 CBC w Diff Auto diff final WBC 13.5 H RBC 4.43 Hgb 12.4 Hct 37.3 MCV 84.2 MCH 28.0 MCHC 33.2 RDW 12.8 Plt Count 253 MPV 9.5 Neut % (Auto) 94.2 H Lymph % (Auto) 1.9 L [place] % (Auto) 2.4 Eos % (Auto) 0.1 Baso % (Auto) 1.4 Neut # (Auto) 12.7 H Lymph # (Auto) 0.3 L [place] # (Auto) 0.3 Eos # (Auto) 0.0 Baso # (Auto) 0.2 WBC Differential . Differential Comment . PT INR APTT Sodium 139 Potassium 3.1 L Chloride 101 Carbon Dioxide 25.4 Anion Gap 13 BUN 23 H Creatinine 1.30 H Estimated GFR 39 L Random Glucose 201 H Lactic Acid 2.9 H Calcium 8.2 L Magnesium 1.4 L Total Bilirubin 0.8 AST 24 ALT 25 Alkaline Phosphatase 115 Total Creatine Kinase 43 Troponin I Less than 0.02 L Total Protein 7.1 Albumin 2.9 L Urine Color Urine Clarity Urine pH Ur Specific [place] Urine Protein Urine Glucose (UA) Urine Ketones Urine Occult Blood Urine Nitrate Urine Bilirubin Urine Urobilinogen Ur Leukocyte Esterase Urine WBC Urine WBC Clumps Urine Bacteria Micro UA Comment Ur Microscopic Review Urine Culture Comments 05/29/18 05/29/18 05/29/18 09:25 10:44 12:06 CBC w Diff WBC RBC Hgb Hct MCV MCH MCHC RDW Plt Count MPV Neut % (Auto) Lymph % (Auto) [place] % (Auto) Eos % (Auto) Baso % (Auto) Neut # (Auto) Lymph # (Auto) [place] # (Auto) Eos # (Auto) Baso # (Auto) WBC Differential Differential Comment PT Cancelled INR Cancelled APTT Cancelled Sodium Potassium Chloride Carbon Dioxide Anion Gap BUN Creatinine Estimated GFR Random Glucose Lactic Acid 2.1 H Calcium Magnesium Total Bilirubin AST ALT Alkaline Phosphatase Total Creatine Kinase Troponin I Total Protein Albumin Urine Color Yellow Urine Clarity Cloudy H Urine pH 6.0 Ur Specific [place] 1.015 Urine Protein Trace Urine Glucose (UA) Negative Urine Ketones Trace H Urine Occult Blood Trace Urine Nitrate Positive H Urine Bilirubin Negative Urine Urobilinogen 0.2 Ur Leukocyte Esterase Large H Urine WBC 21-50 H Urine WBC Clumps Moderate H Urine Bacteria Many H Micro UA Comment Culture indicated Ur Microscopic Review Microscopic reviewed Urine Culture Comments Culture indicated - Imaging Impressions Chest X-Ray 05/29/18 08:56 CONCLUSION: Negative examination. Head CT 05/29/18 08:56 CONCLUSION: 1. Negative CT Head non contrast. . Cervical Spine CT 05/29/18 09:02 CONCLUSION: 1. Stable degenerative changes. No evidence of fracture. Caprini VTE Risk Assessment Caprini VTE Risk Assessment: Moderate/High Risk (score >= 2) Caprini Risk Assessment Model: Point Value = 1 Point Value = 2 Point Value = 3 Point Value = 5 Age 41-60 Minor surgery BMI > 25 kg/m2 Swollen legs Varicose veins or History of unexplained or recurrent spontaneous Oral contraceptives or hormone replacement Sepsis (< 1 month) Serious lung disease, including pneumonia (< 1 month) Abnormal pulmonary function Acute myocardial infarction Congestive heart failure (< 1 month) History of inflammatory bowel disease Medical patient at bed rest Age 61-74 Arthroscopic surgery Major open surgery (> 45 min) Laparoscopic surgery (> 45 min) Malignancy Confined to bed (> 72 hours) Immobilizing plaster cast Central venous access Age >= 75 History of VTE Family history of VTE Factor V Leiden Prothrombin [id number] Lupus anticoagulant Anticardiolipin antibodies Elevated serum homocysteine Heparin-induced thrombocytopenia Other congenital or acquired thrombophilia Stroke (< 1 month) Elective arthroplasty Hip, pelvis, or leg fracture Acute spinal cord injury (< 1 month) Prophylaxis Regimen: Total Risk Factor Score Risk Level Prophylaxis Regimen 0-1 Low Early ambulation 2 Moderate Order ONE of the following: *Sequential Compression Device (SCD) *Heparin 5000 units SQ BID 3-4 Higher Order ONE of the following medications: *Heparin 5000 units SQ TID *Enoxaparin/Lovenox 40 mg SQ daily (WT < 150 kg, CrCl > 30 mL/min) *Enoxaparin/Lovenox 30 mg SQ daily (WT < 150 kg, CrCl > 10-29 mL/min) *Enoxaparin/Lovenox 30 mg SQ BID (WT < 150 kg, CrCl > 30 mL/min) AND/OR *Sequential Compression Device (SCD) 5 or more Highest Order ONE of the following medications: *Heparin 5000 units SQ TID (Preferred with Epidurals) *Enoxaparin/Lovenox 40 mg SQ daily (WT < 150 kg, CrCl > 30 mL/min) *Enoxaparin/Lovenox 30 mg SQ daily (WT < 150 kg, CrCl > 10-29 mL/min) *Enoxaparin/Lovenox 30 mg SQ BID (WT < 150 kg, CrCl > 30 mL/min) AND *Sequential Compression Device (SCD) Assessment and Plan - Assessment (1) Sepsis Code(s): A41.9 - Sepsis, unspecified organism Status: Acute (2) Acute UTI Code(s): N39.0 - Urinary tract infection, site not specified Status: Acute (3) Acute metabolic encephalopathy Code(s): G93.41 - Metabolic encephalopathy Status: Acute - Plan 88-year-old female with: Sepsis: Elevated WBC, febrile and pulse >90 with elevated lactic acid; due to UTI Status post Rocephin IV x1 in ED, will continue antibiotics pending culture report UTI Currently on Rocephin pending culture report Metabolic encephalopathy Secondary to above sepsis due to UTI Head CT noted and reviewed by me without any intracranial abnormality Chest x-ray unremarkable Fall Likely due to UTI and sepsis 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
[2018-05-29] MEDS: Sod Chloride 0.9% Inj 1,000 ML IV.CONT SCH (16:12)
[2018-05-29] MEDS: Insulin NovoLOG Aspart Correctional Sugar Inj SQ SCH ×2 (17:12→21:32)
[2018-05-29] MEDS: QUEtiapine 25 MG Tablet PO SCH (21:32)
[2018-05-30] MEDS: Sod Chloride 0.9% Inj 1,000 ML IV.SIG SCH (06:21)
[2018-05-30] MEDS: Sod Chloride 0.9% Inj 1,000 ML IV.CONT SCH ×2 (06:22→20:23)
[2018-05-30 06:54] LABS: Baso % (Auto) 0.3 % (0.0-2.0); Eos # (Auto) 0.1 th/mm3 (0.0-0.4); Eos % (Auto) 0.6 % (0.0-4.0); Hematocrit 32.2 % (35.0-46.0); Hemoglobin 10.9 gm/dL (11.6-15.3); Lymph # (Auto) 1.3 th/mm3 (1.0-4.8); Lymph % (Auto) 12.7 % (9.0-44.0); Mean Corpuscular Hemoglobin 28.5 pg (27.0-34.0); Mean Corpuscular Volume 83.8 fL (80.0-100.0); Mean Platelet Volume 8.6 fL (7.0-11.0); Mono # (Auto) 0.8 th/mm3 (0.0-0.9); Mono % (Auto) 7.8 % (0.0-8.0); Neut % (Auto) 78.6 % (16.0-70.0); Platelet Count 251 th/mm3 (150-450); Red Blood Count 3.84 mil/mm3 (4.00-5.30); Red Cell Distribution Width 13.4 % (11.6-17.2); White Blood Count 10.2 th/mm3 (4.0-11.0)
[2018-05-30 07:31] LABS: Alanine Aminotransferase 25 U/L (10-53); Albumin 2.4 g/dL (3.4-5.0); Alkaline Phosphatase 102 U/L (45-117); Anion Gap 6 meq/L (5-15); Aspartate Aminotransferase 26 U/L (15-37); Blood Urea Nitrogen 19 mg/dL (7-18); Calcium 7.5 mg/dL (8.5-10.1); Carbon Dioxide 25.4 meq/L (21.0-32.0); Chloride 109 meq/L (98-107); Glomerular Filtration Rate 61 mL/min (>89); Glucose,Random 107 mg/dL (74-106); Potassium 3.9 meq/L (3.5-5.1); Sodium 140 meq/L (136-145); Total Protein 6.2 g/dL (6.4-8.2)
[2018-05-30] MEDS: Insulin NovoLOG Aspart Correctional Sugar Inj SQ SCH ×4 (08:00→21:36)
[2018-05-30] MEDS: Furosemide 20 MG Tablet PO SCH (09:04)
--- NOTE | 2018-05-30 10:16 | P.PN ---
Subjective Interval history: Follow-up Sepsis/UTI May 30, 2018-patient seen and examined, afebrile and no acute event overnight. Physical Exam Vital signs: Vital Signs 05/29/18 11:35 05/29/18 12:10 05/29/18 12:25 Temperature 99.8 F H Pulse Rate 87 88 Respiratory Rate 18 20 Blood Pressure 103/82 95/57 L Pulse Oximetry 96 05/29/18 13:06 05/29/18 16:00 05/29/18 20:00 Temperature 98.3 F 99.3 F Pulse Rate 85 82 90 Respiratory Rate 18 18 20 Blood Pressure 103/54 L 103/56 L 102/50 L Pulse Oximetry 96 99 93 L 05/30/18 00:00 05/30/18 08:00 Temperature 99.0 F 98.2 F Pulse Rate 90 80 Respiratory Rate 20 20 Blood Pressure 108/59 L 111/53 L Pulse Oximetry 95 94 L Intake & Output 05/29/18 05/30/18 05/30/18 18:59 06:59 18:59 Intake Total 2400 / 2400 1000 / 1000 Balance 2400 / 2400 1000 / 1000 Weight 72 kg 70.8 kg Intake: IV 2200 / 2200 1000 / 1000 NS Inj 1,000 ML @ 70 mls/hr IV. 1000 / 1000 CONT .[id number] [facility] Rx#: [id number] Magnesium Sulfate Inj 2 GM In 100 / 100 NS Inj 96 ML @ 50 mls/hr IV.SIG ONCE ONE Rx#:[id number] NS Inj 1,000 ML @ Wide Open IV. 1999 / 1999 SIG BOLUS [facility] Rx#:[id number] Rocephin Inj 1,000 MG In NS Inj 100 / 100 100 ML @ 200 mls/hr IV.SIG ONCE ONE Rx#:[id number] Oral 200 / 200 Other: # Voids 1 # Incontinent Voids 6 # Emeses 1 Weight On Admission 72 kg Narrative: GENERAL: NAD SKIN: Warm and dry. HEAD: Atraumatic. Normocephalic. EYES: Pupils equal and round. No scleral icterus. No injection or drainage. ENT: No nasal bleeding or discharge. Mucous membranes pink and moist. NECK: Trachea midline. No JVD. CARDIOVASCULAR: Regular rate and rhythm. RESPIRATORY: No accessory muscle use. Clear to auscultation. Breath sounds equal bilaterally. GASTROINTESTINAL: Abdomen soft, non-tender, nondistended. Hepatic and splenic margins not palpable. MUSCULOSKELETAL: Extremities without clubbing, cyanosis, or edema. No obvious deformities. NEUROLOGICAL: Awake and alert. No obvious cranial nerve deficits. Motor grossly within normal limits. Five out of 5 muscle strength in the arms and legs. - Urinary Catheter Management Straight Cath placed during this visit: no Reason for continuing: Not indwelling catheter Results - Labs CBC & Chem 7: 05/30/18 06:17 05/30/18 06:17 Laboratory Results - last 24 hr 05/29/18 05/29/18 05/29/18 09:00 10:44 12:06 CBC w Diff WBC RBC Hgb Hct MCV MCH MCHC RDW Plt Count MPV Neut % (Auto) Lymph % (Auto) [place] % (Auto) Eos % (Auto) Baso % (Auto) Neut # (Auto) Lymph # (Auto) [place] # (Auto) Eos # (Auto) Baso # (Auto) WBC Differential Differential Comment PT Cancelled INR Cancelled APTT Cancelled Sodium Potassium Chloride Carbon Dioxide Anion Gap BUN Creatinine Estimated GFR POC Glucose Random Glucose Lactic Acid 2.1 H Calcium Total Bilirubin AST ALT Alkaline Phosphatase 115 Total Creatine Kinase 43 Troponin I Less than 0.02 L Total Protein Albumin 05/29/18 05/29/18 05/30/18 17:05 21:27 06:17 CBC w Diff Auto diff final WBC 10.2 RBC 3.84 L Hgb 10.9 L Hct 32.2 L MCV 83.8 MCH 28.5 MCHC 34.0 RDW 13.4 Plt Count 251 MPV 8.6 Neut % (Auto) 78.6 H Lymph % (Auto) 12.7 [place] % (Auto) 7.8 Eos % (Auto) 0.6 Baso % (Auto) 0.3 Neut # (Auto) 8.0 H Lymph # (Auto) 1.3 [place] # (Auto) 0.8 Eos # (Auto) 0.1 Baso # (Auto) 0.0 WBC Differential . Differential Comment . PT INR APTT Sodium Potassium Chloride Carbon Dioxide Anion Gap BUN Creatinine Estimated GFR POC Glucose 162 H 116 H Random Glucose Lactic Acid Calcium Total Bilirubin AST ALT Alkaline Phosphatase Total Creatine Kinase Troponin I Total Protein Albumin 05/30/18 05/30/18 06:17 07:55 CBC w Diff WBC RBC Hgb Hct MCV MCH MCHC RDW Plt Count MPV Neut % (Auto) Lymph % (Auto) [place] % (Auto) Eos % (Auto) Baso % (Auto) Neut # (Auto) Lymph # (Auto) [place] # (Auto) Eos # (Auto) Baso # (Auto) WBC Differential Differential Comment PT INR APTT Sodium 140 Potassium 3.9 D Chloride 109 H D Carbon Dioxide 25.4 Anion Gap 6 BUN 19 H Creatinine 0.87 Estimated GFR 61 L POC Glucose 118 H Random Glucose 107 H Lactic Acid Calcium 7.5 L Total Bilirubin 0.6 AST 26 ALT 25 Alkaline Phosphatase 102 Total Creatine Kinase Troponin I Total Protein 6.2 L D Albumin 2.4 L Microbiology 05/29/18 09:25 Nasal Wash Influenza Types A,B Antigen - Final Negative for FLU A and B antigen Infection due to influenza A or B cannot be ruled out since the antigen present in the sample may be below the detection limit of the test. - Imaging Impressions Cervical Spine CT 05/29/18 09:02 CONCLUSION: 1. Stable degenerative changes. No evidence of fracture. Assessment and Plan - Assessment (1) Sepsis Code(s): A41.9 - Sepsis, unspecified organism Status: Acute (2) Acute UTI Code(s): N39.0 - Urinary tract infection, site not specified Status: Acute (3) Acute metabolic encephalopathy Code(s): G93.41 - Metabolic encephalopathy Status: Acute - Plan 88-year-old female with: Sepsis: Elevated WBC, febrile and pulse >90 with elevated lactic acid; due to UTI Status post Rocephin IV x1 in ED, continue IV antibiotic pending culture report UTI Currently on Rocephin pending culture report Metabolic encephalopathy Secondary to above sepsis due to UTI Head CT noted and reviewed by me without any intracranial abnormality Chest x-ray unremarkable Fall Likely due to UTI and sepsis 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
--- NOTE | 2018-05-30 16:11 | ECG ---
Date Performed: 05/29/2018 Time Performed: 09:23:51 PTAGE: 88 years EKG: Sinus rhythm LOW QRS VOLTAGE IN PRECORDIAL LEADS NONSPECIFIC T-WAVE ABNORMALITY BORDERLINE ECG Compared to PREVIOUS TRACING , T-waves more flattened anterolaterally, otherwise no signficant change . PREVIOUS TRACIN06/25/2017 15.59 DOCTOR: Naun Turner Interpretating Date/Time 05/30/2018 16:10:38
[2018-05-30] MEDS: QUEtiapine 25 MG Tablet PO SCH (20:25)
[2018-05-31] MEDS: Furosemide 20 MG Tablet PO SCH (08:16)
--- NOTE | 2018-05-31 10:45 | P.PN ---
Subjective Interval history: Follow-up Sepsis/UTI May 30, 2018-patient seen and examined, afebrile and no acute event overnight. May 31, 2018-patient seen and examined, appears more pleasant today. Afebrile. Vital stable. Physical Exam Vital signs: Vital Signs 05/30/18 12:00 05/30/18 16:00 05/30/18 20:00 Temperature 97.9 F 98.3 F 98.4 F Pulse Rate 75 69 69 Respiratory Rate 20 20 16 Blood Pressure 142/60 H 120/59 L 112/69 Pulse Oximetry 95 05/31/18 00:00 05/31/18 08:00 Temperature 98.5 F 96.5 F L Pulse Rate 68 63 Respiratory Rate 16 18 Blood Pressure 104/54 L 132/64 Pulse Oximetry 94 L 96 Intake & Output 05/30/18 05/31/18 05/31/18 18:59 06:59 18:59 Intake Total 440 / 440 1000 / 1000 Output Total 350 / 350 Balance 90 / 90 1000 / 1000 Weight 93.6 kg Intake: IV 100 / 100 1000 / 1000 NS Inj 1,000 ML @ 70 mls/hr IV. 1000 / 1000 CONT .[id number] [facility] Rx#: [id number] Rocephin Inj 1,000 MG In NS Inj 100 / 100 100 ML @ 200 mls/hr IV.SIG Q24H [facility] Rx#:[id number] Oral 340 / 340 Output: Urine 350 / 350 Other: # Incontinent Voids 4 # Emeses 1 Narrative: GENERAL: NAD SKIN: Warm and dry. HEAD: Atraumatic. Normocephalic. EYES: Pupils equal and round. No scleral icterus. No injection or drainage. ENT: No nasal bleeding or discharge. Mucous membranes pink and moist. NECK: Trachea midline. No JVD. CARDIOVASCULAR: Regular rate and rhythm. RESPIRATORY: No accessory muscle use. Clear to auscultation. Breath sounds equal bilaterally. GASTROINTESTINAL: Abdomen soft, non-tender, nondistended. Hepatic and splenic margins not palpable. MUSCULOSKELETAL: Extremities without clubbing, cyanosis, or edema. No obvious deformities. NEUROLOGICAL: Awake and alert. No obvious cranial nerve deficits. Motor grossly within normal limits. Five out of 5 muscle strength in the arms and legs. - Urinary Catheter Management Straight Cath placed during this visit: no Reason for continuing: Not indwelling catheter Results - Labs CBC & Chem 7: 05/30/18 06:17 05/30/18 06:17 Laboratory Results - last 24 hr 05/29/18 05/30/18 05/30/18 09:25 11:50 17:15 POC Glucose 153 H 129 H Urine Color Yellow Urine Clarity Cloudy H Urine pH 6.0 Ur Specific [place] 1.015 Urine Protein Trace Urine Glucose (UA) Negative Urine Ketones Trace H Urine Occult Blood Trace Urine Nitrate Positive H Urine Bilirubin Negative Urine Urobilinogen 0.2 Ur Leukocyte Esterase Large H Urine WBC 21-50 H Urine WBC Clumps Moderate H Urine Bacteria Many H Micro UA Comment Culture indicated Ur Microscopic Review Microscopic reviewed Urine Culture Comments Culture indicated 05/30/18 05/31/18 21:30 07:21 POC Glucose 176 H 151 H Urine Color Urine Clarity Urine pH Ur Specific [place] Urine Protein Urine Glucose (UA) Urine Ketones Urine Occult Blood Urine Nitrate Urine Bilirubin Urine Urobilinogen Ur Leukocyte Esterase Urine WBC Urine WBC Clumps Urine Bacteria Micro UA Comment Ur Microscopic Review Urine Culture Comments Microbiology 05/29/18 09:25 Catheterized Urine Urine Culture - Final Escherichia coli 05/29/18 09:08 Blood - Peripheral Aerobic Blood Culture - Preliminary No growth in 1 day 05/29/18 09:08 Blood - Peripheral Anaerobic Blood Culture - Preliminary No growth in 1 day 05/29/18 09:00 Blood - Peripheral Aerobic Blood Culture - Preliminary No growth in 1 day 05/29/18 09:00 Blood - Peripheral Anaerobic Blood Culture - Preliminary No growth in 1 day Assessment and Plan - Assessment (1) Sepsis Code(s): A41.9 - Sepsis, unspecified organism Status: Acute (2) Acute UTI Code(s): N39.0 - Urinary tract infection, site not specified Status: Acute (3) Acute metabolic encephalopathy Code(s): G93.41 - Metabolic encephalopathy Status: Acute - Plan 88-year-old female with: Sepsis: Resolved UTI Culture positive for E. coli; currently on Rocephin. Will discharge on Macrobid 100 mg p.o. 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
[2018-05-31] MEDS: Insulin NovoLOG Aspart Correctional Sugar Inj SQ SCH ×4 (12:38→21:50)
[2018-05-31] MEDS: Sod Chloride 0.9% Inj 1,000 ML IV.CONT SCH (12:40)
--- NOTE | 2018-05-31 14:49 | P.DS ---
Date of admission: 05/29/18 10:49 Primary care physician: Floresita Park Brief History from admission: 88-year-old female for past medical history of dementia who is unable to provide any history at this time during my exam and history is obtained from ED report and chart review below: "Patient is an 88-year-old female with history of dementia, diabetes, ckd, hyperlipidemia, asthma; presents the emergency room for evaluation of altered mental status, fall as well as fever. As per EMS, they were initially called on scene as patient had a witnessed fall while in the bathroom. It was unclear if patient had any trauma to her head or if she suffered LOC. When they arrived on scene, patient did feel warm and patient was noted to have a fever. Patient is pleasantly demented, and is unable to provide an HPI at this time. " Patient was found to have elevated WBC, lactic acid and abnormal UA for which she was treated with Rocephin IV x1 in the ED. DS: Diagnosis - Discharge Diagnosis (1) Sepsis Status: Acute (2) Acute UTI Status: Acute (3) Acute metabolic encephalopathy Status: Acute DS: Summary Hospital Course: While in hospital, patient was treated for: Sepsis: Resolved UTI Culture positive for E. coli; patient was treated with Rocephin and will be discharged home on p.o. 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 PT was consulted treat and eval Fall precaution Diabetes type 2 Patient's oral anti-hyperglycemic agents were held, and she was started on medium sliding scale insulin Other chronic medical conditions She was continued on her outpatient medications DVT prophylaxis: Bilateral SCDs - Time Spent with Patient Total time spent providing and/or coordinating discharge services: Greater than 30 minutes - Quality: VTE Deep Vein Thrombosis/Pulmonary Embolism Present on Admission: No Exam Vital signs: Vital Signs 05/30/18 16:00 05/30/18 20:00 05/31/18 00:00 Temperature 98.3 F 98.4 F 98.5 F Pulse Rate 69 69 68 Respiratory Rate 20 16 16 Blood Pressure 120/59 L 112/69 104/54 L Pulse Oximetry 95 94 L 05/31/18 08:00 05/31/18 12:00 Temperature 96.5 F L 97.2 F L Pulse Rate 63 61 Respiratory Rate 18 18 Blood Pressure 132/64 133/60 Pulse Oximetry 96 98 Intake & Output 05/30/18 05/31/18 05/31/18 18:59 06:59 18:59 Intake Total 440 / 440 1000 / 1000 100 / 100 Output Total 350 / 350 Balance 90 / 90 1000 / 1000 100 / 100 Weight 93.6 kg Intake: IV 100 / 100 1000 / 1000 100 / 100 NS Inj 1,000 ML @ 70 mls/hr IV. 1000 / 1000 CONT .[id number] MILLY Rx#: [id number] Rocephin Inj 1,000 MG In NS Inj 100 / 100 100 / 100 100 ML @ 200 mls/hr IV.SIG Q24H MILLY Rx#:[id number] Oral 340 / 340 Output: Urine 350 / 350 Other: # Incontinent Voids 4 # Emeses 1 Narrative: GENERAL: NAD SKIN: Warm and dry. HEAD: Atraumatic. Normocephalic. EYES: Pupils equal and round. No scleral icterus. No injection or drainage. ENT: No nasal bleeding or discharge. Mucous membranes pink and moist. NECK: Trachea midline. No JVD. CARDIOVASCULAR: Regular rate and rhythm. RESPIRATORY: No accessory muscle use. Clear to auscultation. Breath sounds equal bilaterally. GASTROINTESTINAL: Abdomen soft, non-tender, nondistended. Hepatic and splenic margins not palpable. MUSCULOSKELETAL: Extremities without clubbing, cyanosis, or edema. No obvious deformities. NEUROLOGICAL: Awake and alert. No obvious cranial nerve deficits. Motor grossly within normal limits. Five out of 5 muscle strength in the arms and legs. Results Procedures completed during hospitalization: None Labs on day of discharge: Labs from last 24 hours 05/31/18 05/31/18 05/30/18 11:24 07:21 21:30 POC Glucose 175 H 151 H 176 H 05/30/18 17:15 POC Glucose 129 H Preliminary micro results at discharge 05/29/18 09:08 Aerobic Blood Culture - Preliminary Blood - Peripheral No growth in 2 days Anaerobic Blood Culture - Preliminary No growth in 2 days 05/29/18 09:00 Aerobic Blood Culture - Preliminary Blood - Peripheral No growth in 2 days Anaerobic Blood Culture - Preliminary No growth in 2 days - Impressions ITS Impressions Chest X-Ray 05/29/18 08:56 CONCLUSION: Negative examination. Head CT 05/29/18 08:56 CONCLUSION: 1. Negative CT Head non contrast. . Cervical Spine CT 05/29/18 09:02 CONCLUSION: 1. Stable degenerative changes. No evidence of fracture. Discharge Plan - Discharge Disposition Patient Disposition: 04 [facility] - Discharge Condition Condition: Fair - Discharge Order Discharge Orders: Discharge Order (Routine); Ordered 05/31/18 Ordered By: Antonio Xiao - Physicians Team Primary Care Provider: Floresita Park Attending Provider: Antonio Xiao Other Providers: [employer],Insurance
[2018-05-31] MEDS: QUEtiapine 25 MG Tablet PO SCH (21:51)
[2018-06-01] MEDS: Insulin NovoLOG Aspart Correctional Sugar Inj SQ SCH ×2 (07:41→11:37)
[2018-06-01 08:31] VITALS: BP 137/60; PULSE 72; RESP 22; TEMP 98.2; O2SAT 97
[2018-06-01] MEDS: Furosemide 20 MG Tablet PO SCH (09:15)
--- NOTE | 2018-06-01 10:51 | P.PN ---
Subjective Interval history: Follow-up Sepsis/UTI May 30, 2018-patient seen and examined, afebrile and no acute event overnight. May 31, 2018-patient seen and examined, appears more pleasant today. Afebrile. Vital stable. June 01, 2018-patient seen and examined, discharge orders and placed. No acute event overnight. Afebrile. Physical Exam Vital signs: Vital Signs 05/31/18 12:00 05/31/18 16:00 06/01/18 00:00 Temperature 97.2 F L 97.6 F 97.5 F L Pulse Rate 61 66 77 Respiratory Rate 18 18 18 Blood Pressure 133/60 120/55 L 124/65 Pulse Oximetry 98 97 90 L 06/01/18 05:46 06/01/18 08:00 Temperature 98.2 F Pulse Rate 72 Respiratory Rate 22 Blood Pressure 137/60 Pulse Oximetry 96 97 Intake & Output 05/31/18 06/01/18 06/01/18 18:59 06:59 18:59 Intake Total 100 / 100 0 / 0 1040 / 1040 Output Total 400 / 400 600 / 600 Balance -300 / -300 -600 / -600 1040 / 1040 Intake: IV 100 / 100 1000 / 1000 NS Inj 1,000 ML @ 70 mls/hr IV. 1000 / 1000 CONT .[id number] MILLY Rx#: [id number] Rocephin Inj 1,000 MG In NS Inj 100 / 100 100 ML @ 200 mls/hr IV.SIG Q24H MILLY Rx#:[id number] Oral 0 / 0 40 / 40 Output: Urine 400 / 400 600 / 600 Other: # Bowel Movements 2 Narrative: GENERAL: NAD SKIN: Warm and dry. HEAD: Atraumatic. Normocephalic. EYES: Pupils equal and round. No scleral icterus. No injection or drainage. ENT: No nasal bleeding or discharge. Mucous membranes pink and moist. NECK: Trachea midline. No JVD. CARDIOVASCULAR: Regular rate and rhythm. RESPIRATORY: No accessory muscle use. Clear to auscultation. Breath sounds equal bilaterally. GASTROINTESTINAL: Abdomen soft, non-tender, nondistended. Hepatic and splenic margins not palpable. MUSCULOSKELETAL: Extremities without clubbing, cyanosis, or edema. No obvious deformities. NEUROLOGICAL: Awake and alert. No obvious cranial nerve deficits. Motor grossly within normal limits. Five out of 5 muscle strength in the arms and legs. - Urinary Catheter Management Straight Cath placed during this visit: no Reason for continuing: Not indwelling catheter Results - Labs CBC & Chem 7: 05/30/18 06:17 05/30/18 06:17 Laboratory Results - last 24 hr 05/31/18 05/31/18 06/01/18 11:24 20:19 07:13 POC Glucose 175 H 141 H 162 H Microbiology 05/29/18 09:08 Blood - Peripheral Aerobic Blood Culture - Preliminary No growth in 2 days 05/29/18 09:08 Blood - Peripheral Anaerobic Blood Culture - Preliminary No growth in 2 days 05/29/18 09:00 Blood - Peripheral Aerobic Blood Culture - Preliminary No growth in 2 days 05/29/18 09:00 Blood - Peripheral Anaerobic Blood Culture - Preliminary No growth in 2 days 05/29/18 09:25 Catheterized Urine Urine Culture - Final Escherichia coli - Procedures None Assessment and Plan - Assessment (1) Sepsis Code(s): A41.9 - Sepsis, unspecified organism Status: Acute (2) Acute UTI Code(s): N39.0 - Urinary tract infection, site not specified Status: Acute (3) Acute metabolic encephalopathy Code(s): G93.41 - Metabolic encephalopathy Status: Acute - Plan 88-year-old female with: Sepsis: Resolved UTI Culture positive for E. coli; currently on Rocephin. Discharge on Macrobid 100 mg p.o. 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
[2018-06-01] MEDS: Sod Chloride 0.9% Inj 1,000 ML IV.CONT SCH (11:03)
== END 2018-06-01 12:48 ==
LOC: PHED 08:53 → PHEDA 10:49 → PH3 13:15
PROVIDERS: ADMIT Hospitalist; ATTEND Hospitalist